=== PATIENT | female | born 1995 | race Caucasian/White ===

== ENCOUNTER 2016-12-03 13:47 | Emergency (ER) | payer OTHER | END 2016-12-03 17:24 | disposition left against medical advice (07) | LOC: FER 13:47 | DX: R06.02 Shortness of breath (principal); R05 Cough; Z53.8 Procedure and treatment not carried out for other reasons ==

== ENCOUNTER 2021-01-11 11:48 | Emergency (ER) | payer OTHER ==
[~2021-01-11 11:48] MED LIST: BENTYL10 MG PO; CARAFATE S500 MG/TSP PO; FLEXERIL10 MG PO; FLEXERIL5 MG PO; KETOROLAC TROME10 MG PO; NAPROSYN375 MG PO; PERCOCET 5-3251 EACH PO; VOLTAREN **OUT75 MG PO; ZOFRAN4 MG SL
[2021-01-11] MEDS ORDERED: SSD25 GM TOP (13:11)
[2021-01-11] MEDS ORDERED: NORCO 5-325 TA1 EACH PO (13:11)
== END 2021-01-11 13:24 | disposition home or self-care (01) ==
LOC: FER 11:48
DX: T22.212A Burn of second degree of left forearm, initial encounter (principal); F17.200 Nicotine dependence, unspecified, uncomplicated; Z23 Encounter for immunization; X08.8XXA Exposure to other specified smoke, fire and flames, initial encounter; Y92.410 Unspecified street and highway as the place of occurrence of the external cause
CPT/HCPCS: 90471; 90715